=== PATIENT | female | born 1990 | race Caucasian/White ===

== ENCOUNTER 2018-02-13 10:10 | Emergency (ER) | payer OTHER ==
--- NOTE | 2018-02-13 10:43 | EDPHY ---
H & P Time Seen by Provider: 02/13/18 10:28 HPI/ROS: Chief complaint. Hand laceration HPI. Patient is 27-year-old female was shucking oysters last night and stab herself in the left palm with the oyster knife. Injury occurred about 9:00 p.m.. Patient complains of pain. No focal weakness or paresthesias it hurts to move her fingers. No other injuries. She is right handed. ROS 10 systems were reviewed and negative with the exception of the elements mentioned in the history of present illness Past Medical/Surgical History: IUD, fibromyalgia Social History: , nonsmoker, no alcohol Smoking Status: Never smoked Physical Exam: General Appearance: Alert well-developed female mild distress vital signs are stable Eyes: Pupils equal and round no pallor or injection. ENT, Mouth: Mucous membranes are moist. Respiratory: There are no retractions, lungs are clear to auscultation. Cardiovascular: Regular rate and rhythm. Gastrointestinal: Abdomen is soft and nontender, no masses, bowel sounds normal. Neurological: Awake and alert, sensory and motor exams grossly normal. Skin: Stab wound to the mid palm left hand. No obvious swelling or erythema. No evidence for foreign body. Complains of pain with range of motion of fingers. Musculoskeletal: Neck is supple nontender. Extremities symmetrical, full range of motion. Psychiatric: Patient is oriented X 3, there is no agitation. Constitutional: Initial Vital Signs Temperature (C) 37.1 C 02/13/18 10:13 Heart Rate 104 H 02/13/18 10:13 Respiratory Rate 18 02/13/18 10:13 Blood Pressure 122/85 H 02/13/18 10:13 O2 Sat (%) 96 02/13/18 10:13 O2 Delivery Mode Room Air Allergies/Adverse Reactions: NSAIDS (Non-Steroidal Anti-Inflamma Allergy (Verified 02/13/18 10:12) Penicillins Allergy (Verified 02/13/18 10:12) Home Medications: Medication Instructions Recorded LYRICA 12/17/17 Hydrocodone/APAP 5/325 [Morse 1 each PO Q4-6PRN PRN #10 tab 02/13/18 5/325 (*)] levOFLOXACIN [levAQUIN (*)] 750 mg PO DAILY #7 tab 02/13/18 Medical Decision Making - Diagnostics Imaging Results: Imaging Impressions Hand X-Ray 02/13/18 10:48 Impression:. 1. No definite radiopaque foreign bodies. 2. No definite fracture, although suboptimal positioning. X-ray left hand interpreted by me is negative for fracture or foreign body ED Course/Re-evaluation: Re-evaluation 04 16. The patient, her , and I discussed imaging study results, treatment plan including criteria for return and importance of follow- up and further evaluation. They expressed understanding and agreement Differential Diagnosis: Stab wound to left palm while shucking oysters. Likely bacterial etiology would be vibrio species. No evidence for tendon laceration or bone involvement or retained foreign body. Departure - Departure Disposition: Home, Routine, Self-Care Clinical Impression: Laceration Condition: Good Instructions: Laceration Without Closure (ED) Additional Instructions: Ice to hand today to help minimize swelling Hydrocodone as needed for pain or Tylenol 1000 mg every 6 hr Levaquin as antibiotic Return for worsening symptoms. For continued pain, redness, swelling follow up with Hand surgery on Thursday or Thursday Referrals: NONE *PRIMARY CARE P,. [Primary Care Provider] - As per Instructions Lalo Parkre MD [Medical Doctor] - 2-3 days, if not improved Prescriptions: Hydrocodone/APAP 5/325 [Morse 5/325 (*)] 1 each PO Q4-6PRN PRN #10 tab PRN Reason: Pain, Moderate levOFLOXACIN [levAQUIN (*)] 750 mg PO DAILY #7 tab
[2018-02-13 11:49] VITALS: BP 121/71
== END 2018-02-13 11:49 | disposition home or self-care (01) ==
DX: S61.412A Laceration without foreign body of left hand, initial encounter (principal); W26.0XXA Contact with knife, initial encounter; Y93.G1 Activity, food preparation and clean up; Y92.000 Kitchen of unspecified non-institutional (private) residence as the place of occurrence of the external cause

== ENCOUNTER 2018-05-21 17:07 | Emergency (ER) | payer OTHER ==
[2018-05-21 17:15] VITALS: BP 104/86
--- NOTE | 2018-05-21 17:52 | EDPHY ---
General Time Seen by Provider: 05/21/18 17:30 Narrative: CLINICAL IMPRESSION: Closed head injury with mild concussion ASSESSMENT/PLAN: 28-year-old female presents to the emergency department 3 days after a very mild closed head injury without loss of consciousness. Patient is alert, oriented, with a nonfocal neurological exam. No clinical findings to suggest basilar skull fracture or severe closed-head injury, intracranial hemorrhage. No midline neck pain, upper extremity radiculopathy or weakness. Post concussive and 2nd impact syndrome discussed at length. Follow up with PCP. Warning signs return to ED sooner outlined and discharge. DIFFERENTIAL DX: Differential diagnosis for headache includes but not limited to subarachnoid hemorrhage, mild concussion, post concussive syndrome migraine headache, migraine variant headache, tension headache and infectious causes such as meningitis, pharyngitis and sinusitis. ED COURSE: CHIEF COMPLAINT: Closed head injury 3 days ago, headache, fogginess HPI: 28-year-old female with a history fibromyalgia and anxiety, presents to the emergency department by request of her primary care at the [facility] for evaluation of possible concussion. Patient states 3 days ago she was sitting down on a couch, leaned back and hit the left posterior portion of her head on a cabinet. She had no loss of consciousness. She thought she had a black eye the next day but denies hitting her face. She saw her primary care today, spoke to a nurse, who sent her to the ED for evaluation. Patient reports mild intermittent headaches, confusion, "fogginess", and photophobia. She has no history of chronic headaches. She is not anticoagulated. No history of closed head injury. No retrograde or antegrade amnesia. No reports of neck pain, upper extremity numbness or weakness that is new or different from what she already suffers with. PAST MEDICAL HISTORY: Fibromyalgia, anxiety See triage summary and nurse notes for addition applicable history Pertinent Past Surgical History: None reported Family History: Noncontributory Social History: Currently unemployed, [employer] patient REVIEW OF SYSTEMS: A full 10 point review of systems was negative except for those mentioned in HPI. PHYSICAL EXAM: General Appearance: Alert, oriented, appropriate, cooperative, NAD, well hydrated, non-toxic appearing, VSS, no hypoxia. HEENT: TMs are clear bilaterally no perforation or FB, no injection, no evidence of serous or mucopurulent otitis. No hemotympanum or Kauffman sign no palpable scalp depression, contusion, laceration. No raccoon eyes. Oropharynx clear is no erythema or exudates, no tonsillar hypertrophy or asymmetry. Dentition without abnormality. Eyes: PERRLA, no acute vision change, nystagmus, swelling, discharge, pain or photosensitivity. Conjunctiva pink, no pallor or injection Neck: Supple, nontender, no lymphadenopathy, no midline pain, FROM, no meningismus. Respiratory: There are no retractions, lungs are clear to auscultation. No chest wall tenderness or rib pain Cardiac: Regular rate and rhythm, no murmurs or gallops. Neuro: Alert, oriented x3, answering all questions appropriately, no focal neurological deficits on exam. Gait without ataxia Skin: Warm, dry, no rashes, no nodules on palpation. MEDICAL DECISION MAKING: Patient was seen independently. Secondary supervising physician at time of evaluation was: Dr. Jara. Diagnosis: Mild concussion . New, requires workup Summary: See Assessment and Plan for summary of ED visit Patient Progress: Improved. - History Smoking Status: Never smoked - Objective Vital Signs: Initial Vital Signs Temperature (C) 36.9 C 05/21/18 17:12 Heart Rate 74 05/21/18 17:12 Respiratory Rate 18 05/21/18 17:12 Blood Pressure 104/86 H 05/21/18 17:12 O2 Sat (%) 98 05/21/18 17:12 O2 Delivery Mode Room Air Allergies/Adverse Reactions: NSAIDS (Non-Steroidal Anti-Inflamma Allergy (Verified 05/21/18 17:10) Penicillins Allergy (Verified 05/21/18 17:10) Home Medications: Medication Instructions Recorded LYRICA 12/17/17 levOFLOXACIN [levAQUIN (*)] 750 mg PO DAILY #7 tab 02/13/18 DULoxetine 05/21/18 Propranolol HCl 05/21/18 Departure - Departure Disposition: Home, Routine, Self-Care Clinical Impression: Mild concussion Qualifiers: Encounter type: initial encounter Loss of consciousness presence/duration: without LOC Qualified Code(s): S06.0X0A - Concussion without loss of consciousness, initial encounter Condition: Good Instructions: Concussion (ED), Post Concussion Syndrome (ED) Additional Instructions: DISCHARGE INSTRUCTIONS FROM YOUR DOCTOR Thank you for visiting our emergency department today. Please keep in mind that discharge from the emergency department does not mean that there is nothing wrong - it simply means that we have not identified an emergency condition that requires further evaluation or treatment in the hospital. You should always plan to follow up with primary care for re-evaluation of your condition in the next 2-3 days. If you have been referred to a specialist, please call as soon as possible (today or tomorrow) to schedule your follow up appointment at the appropriate time. YOU ARE BEING DIAGNOSED WITH A CONCUSSION. PLEASE FOLLOWUP WITH A PRIMARY CARE DOCTOR IN 24-48 HOURS. IF YOU DO NOT HAVE A PRIMARY CARE, A REFERRAL WAS GIVEN TONIGHT. PLEASE AVOID TV, COMPUTERS, TEXTING, VIDEO GAMES, SCREEN TIME AND CONTACT SPORTS UNTIL YOU ARE CLEARED BY A PRIMARY CARE. WE HAVE ALSO INCLUDED OUR GRADUAL RETURN TO PLAY PROTOCOL A GUIDELINE BUT DEFINITIVE RETURN TO ABOVE MENTIONED ACTIVITIES SHOULD COME FROM YOUR PCP. RETURN TO THE ER SOONER FOR WORSENING OR SEVERE HEADACHES, SEIZURES, ALTERED MENTAL STATUS, VOMITING, SEVERE GRADUAL [id number] PROTOCOL PATIENT MUST BE SYMPTOM FREE FOR 24 HOURS BEFORE PROGRESSING TO THE NEXT STEP. IF PATIENT HAS SYMPTOMS DURING STEP'S 2-6, STOP ACTIVITY AND RETURN PREVIOUS STEP. PATIENT CAN NOT PROGRESS TO NEXT STEP UNLESS CURRENT STEP CAN BE COMPLETED WITH OUT ANY SYMPTOMS (IE HEADACHE, DIZZINESS, CONFUSION...) BRIGHT LIGHTS, TV, COMPUTERS, IPAD'S, MUSIC, READING CAN TRIGGER OR WORSEN CONCUSSION SYMPTOMS THUS SHOULD BE AVOIDED OR USED IN MODERATION. NO CONTACT SPORTS UNTIL YOU ARE CLEARED BY YOUR PRIMARY CARE PHYSICIAN. STEP 1. NO SAME DAY RETURN TO PLAY, REST ONLY , DO NOT PROCEED TO STEP 2 UNTIL ALL SYMPTOMS HAVE RESOLVED STEP 2. LIGHT AEROBIC EXERCISE (IE WALKING, SWIMMING OR STATIONARY CYCLING), WHILE KEEPING INTENSITY < 70% MAX HEART RATE STEP 3. SPORT-SPECIFIC EXERCISE (IE SKATING DRILLS IN ICE HOCKEY-NO PASSING, RUNNING DRILLS IN SOCCER-NO PASSING), NO HEAD IMPACT ACTIVITIES STEP 4. NON-CONTACT TRAINING, WITH PROGRESSION TO MORE COMPLEX DRILLS (IE PASSING DRILLS) NO HEAD IMPACT ACTIVITIES STEP 5. FULL-CONTACT PRACTICE AFTER GETTING MEDICAL CLEARANCE STEP 6. RETURN TO GAME PLAY THIS WAS BASED FROM: CONSENSUS STATEMENT ON CONCUSSION IN SPORT: THE 4TH INTERNATIONAL CONFERENCE ON CONCUSSION IN SPORT HELD [facility]. BR J SPORTS MED. 2013;47(5):250- 258 People present with illnesses and injuries in different ways, and it is always possible that we have missed something. You may always return for re-evaluation if symptoms worsen or if they are not improving or if you develop new/different symptoms. Again, thank you for choosing our emergency department. We hope that you feel better. Referrals: MIMI KELLY [Other] - 2-3 days without fail
== END 2018-05-21 17:58 | disposition home or self-care (01) ==
DX: S06.0X0A Concussion without loss of consciousness, initial encounter (principal); M79.7 Fibromyalgia; F41.9 Anxiety disorder, unspecified; W22.09XA Striking against other stationary object, initial encounter; Y92.9 Unspecified place or not applicable; Y93.9 Activity, unspecified; Y99.9 Unspecified external cause status; Z88.0 Allergy status to penicillin

== ENCOUNTER 2018-06-12 14:57 | Emergency (ER) | payer OTHER ==
[2018-06-12 15:05] VITALS: BP 121/75
--- NOTE | 2018-06-12 15:37 | EDPHY ---
H & P Stated Complaint: R wrist injury 3 days ago, swollen, buised. Time Seen by Provider: 06/12/18 15:32 HPI/ROS: HPI: This is a 28-year-old female who presents with Chief Complaint: R wrist injury 3 days ago, swollen, bruised. Location: Right wrist Quality: Injury Duration: 2 days ago Signs and Symptoms: No bleeding, no radiation, no numbness, no weakness, no tingling, no incontinence, no decreased range of motion, + swelling, + pain, no fever, + bruising Timing: Acute, constant Severity: Moderate Context: Patient has a history of fibromyalgia, right-hand dominant, presents with complaints of her pulling on her right hand and wrist while they were hiking in order to prevent her from falling when she slipped and lost her footing. Denies LOC/head injury/neck pain/dizziness/nausea/vomiting/amnesia. She reports that she felt immediate, constant, moderate pain at the time and then later developed bruising and swelling on the volar aspect of her wrist. Patient took Tylenol approximately 1 hr prior to arrival with no relief of pain. Modifying Factors: Tylenol Comment: ROS: A comprehensive 10 system review of systems is otherwise negative aside from elements mentioned in the history of present illness. MEDICAL/SURGICAL/SOCIAL HISTORY: Medical history: fibromyalgia, anxiety. IUD in place. Surgical history: Denies Social history: . Nonsmoker CONSTITUTIONAL: Well-developed, well-nourished, young adult white female, awake and alert, no obvious distress HEENT: Atraumatic and normocephalic. NECK: supple, no midline tenderness Cardiovascular: Normal S1/S2, regular rate, regular rhythm, without murmur rub or gallop. PULMONARY/CHEST: Symmetrical and nontender. Clear to auscultation bilaterally. Good air movement. No accessory muscle usage. ABDOMEN: Soft, nondistended, nontender. BACK: No midline tenderness EXTREMITIES: 2/2 pulses, strength 5/5, right WRIST: Bruising noted to the volar aspect with tenderness to palpation over the wrist crease. Extension to 70, flexion to 80, radial deviation to 20 degree, ulnar deviation to 30, no scaphoid tenderness, no tenderness over ulnar styloid, no tenderness over radial styloid, no pain with Asael test, no pain with Phalen test, no pain with Tinel test. DIP/PIP/MCP flexion/extension intact with good light touch sensation. no deformities, no clubbing, no cyanosis or edema. NEUROLOGICAL: no focal neuro deficits. GCS 15. Light touch sensation intact. SKIN: Warm and dry, no erythema. no rash. Good capillary refill. Source: Patient Exam Limitations: No limitations - Personal History LMP (Females 10-55): IUD In Place Current Tetanus/Diphtheria Vaccine: Unsure Current Tetanus Diphtheria and Acellular Pertussis (TDAP): Unsure - Medical/Surgical History Hx Asthma: No Hx Chronic Respiratory Disease: No Hx Diabetes: No Hx Cardiac Disease: No Hx Renal Disease: No Hx Cirrhosis: No Hx Alcoholism: No Hx HIV/AIDS: No Hx Splenectomy or Spleen Trauma: No Other PMH: fibromyalgia, anxiety. - Social History Smoking Status: Never smoked Constitutional: Initial Vital Signs Temperature (C) 37.0 C 06/12/18 15:01 Heart Rate 70 06/12/18 15:01 Respiratory Rate 16 06/12/18 15:01 Blood Pressure 121/75 H 06/12/18 15:01 O2 Sat (%) 97 06/12/18 15:01 O2 Delivery Mode Room Air Allergies/Adverse Reactions: NSAIDS (Non-Steroidal Anti-Inflamma Allergy (Intermediate, Verified 06/12/18 15: 06) Abdominal Cramping Penicillins Allergy (Intermediate, Verified 06/12/18 15:06) Rash Home Medications: Medication Instructions Recorded LYRICA 12/17/17 DULoxetine 05/21/18 Propranolol HCl 05/21/18 Medical Decision Making Procedures: Procedure: Splint placement. A right Velcro thumb spica splint was applied by the Emergency Room sound recording technician. After application of the splint I returned and re-examined the patient. The splint was adequately immobilizing the joint and distal to the splint the patient's circulation and sensation was intact. ED Course/Re-evaluation: Vital signs reviewed and stable. Reviewed right wrist x-ray and shows no fracture, dislocation. Appears to be a sprain and soft tissue injury. Placed in Velcro thumb spica splint with orthopedic follow-up as needed Patient asking for pain medication as NSAIDs upset her stomach. Patient given Percocet x1 in the emergency room. No signs of neurovascular compromise/tenting of skin/compartment syndrome/ extremities and joints examined above and below area of concern and are neurovascularly intact. This patient was seen under the supervision of my secondary supervising physician. I evaluated care for this patient independently. Discussed this patient with Dr. Vanegas who did not see the patient. Differential Diagnosis: Differential diagnosis includes but is not limited to radial fracture, ulnar fracture, scaphoid fracture, wrist sprain. - Data Points Medications Given: Discontinued Medications Oxycodone/Acetaminophen (Percocet 5/325) 1 tab PO EDNOW ONE Stop: 06/12/18 15:40 Last Admin: 06/12/18 15:44 Dose: 1 tab Departure - Departure Disposition: Home, Routine, Self-Care Clinical Impression: Sprain of right wrist Qualifiers: Encounter type: initial encounter Qualified Code(s): S63.501A - Unspecified sprain of right wrist, initial encounter Contusion of wrist, right Qualifiers: Encounter type: initial encounter Qualified Code(s): S60.211A - Contusion of right wrist, initial encounter Condition: Good Instructions: Contusion in Adults (ED), Wrist Sprain (ED) Additional Instructions: Wear the splint while out of bed until pain free or seen by Orthopedics. Take Tylenol 650 mg every 4 hours and/or Ibuprofen 600 mg every 8 hours with food as needed for pain. Apply ice for 30 minutes at a time; 2-3 times per day for the next 1-2 days. Follow up with Orthopedics in 7-10 days if symptoms persist at which time they will evaluate and recommend with you if conservative management versus further imaging is indicated. The x-rays obtained in the emergency department today demonstrate no evidence of an obvious fracture. Sometimes fractures are not obvious on the initial set of x-rays performed in the ED. For this reason, you should have repeat x-rays performed in 7-10 days if you are having any pain exclude the possibility of an occult fracture. Referrals: Evan Becerra MD [Medical Doctor] - As per Instructions
[2018-06-12] MEDS ORDERED: OXYCODONE/APAP 5/325 TAB PO ONE (15:39)
== END 2018-06-12 15:46 | disposition home or self-care (01) ==
DX: S63.501A Unspecified sprain of right wrist, initial encounter (principal); S60.211A Contusion of right wrist, initial encounter; W50.2XXA Accidental twist by another person, initial encounter; Y93.01 Activity, walking, marching and hiking; Y92.828 Other wilderness area as the place of occurrence of the external cause
CPT/HCPCS: L3807

== ENCOUNTER 2018-07-22 17:15 | Emergency (ER) | payer OTHER ==
[2018-07-22] MEDS ORDERED: NS 1,000 ML IV ONE (18:05)
[2018-07-22] MEDS ORDERED: fentaNYL 100 MCG/2 ML INJ IVP ONE (18:05)
[2018-07-22 18:45] LABS: PLATELET COUNT 331 10^3/uL (150-400)
[2018-07-22] MEDS ORDERED: HYOSCYAMINE SULFATE 0.125 MG TAB PO ONE (19:53)
[2018-07-22] MEDS ORDERED: MAG HYDROX/AL HYDROX/SIMETH 30 ML UDCUP PO ONE (19:53)
[2018-07-22] MEDS ORDERED: LIDOCAINE 2% VISCOUS 15 ML UDCUP PO ONE (19:53)
--- NOTE | 2018-07-22 19:58 | EDPHY ---
H & P Stated Complaint: RUQ abd pain Time Seen by Provider: 07/22/18 17:53 HPI/ROS: Chief complaint: Right upper quadrant abdominal pain History of present illness: This is a 28-year-old female who presents to the emergency department for right upper quadrant abdominal pain. She reports the onset of symptoms over the last 2-3 days. She describes a squeezing pain that has been intermittent nature but becoming more persistent over the last day. She has had associated nausea but no vomiting. She denies precipitating factors. She denies any alleviating or aggravating factors. She denies other associated signs or symptoms including no fevers, no diarrhea or constipation, no blood in the stools, no urinary symptoms, no chest pain, trouble breathing or cough. Review of systems: A 10 point review of systems was obtained and other than described above was negative - Personal History LMP (Females 10-55): IUD In Place Current Tetanus/Diphtheria Vaccine: Yes Current Tetanus Diphtheria and Acellular Pertussis (TDAP): Yes - Medical/Surgical History Hx Asthma: No Hx Chronic Respiratory Disease: No Hx Diabetes: No Hx Cardiac Disease: No Hx Renal Disease: No Hx Cirrhosis: No Hx Alcoholism: No Hx HIV/AIDS: No Hx Splenectomy or Spleen Trauma: No Other PMH: fibromyalgia, anxiety. - Social History Smoking Status: Never smoked - Physical Exam Exam: General Appearance: Alert, nontoxic. Eyes: Pupils equal and round no pallor or injection. ENT, Mouth: Mucous membranes moist. Respiratory: There are no retractions, lungs are clear to auscultation. Cardiovascular: Regular rate and rhythm. Gastrointestinal: Bowel sounds are normal. Abdomen is soft and nondistended. There is mild tenderness in the right upper quadrant but no Payne sign. No peritoneal signs. Neurological: Alert and oriented x4. Strength and sensation intact and symmetrical. Skin: Warm and dry, no rashes. Musculoskeletal: Neck is supple non tender. Extremities are symmetrical, full range of motion. Psychiatric: Patient is oriented X 3, there is no agitation. Constitutional: Initial Vital Signs Temperature (C) 37.3 C 07/22/18 17:24 Heart Rate 89 07/22/18 17:24 Respiratory Rate 16 07/22/18 17:24 Blood Pressure 128/71 H 07/22/18 17:24 O2 Sat (%) 96 07/22/18 17:24 O2 Delivery Mode Room Air Allergies/Adverse Reactions: NSAIDS (Non-Steroidal Anti-Inflamma Allergy (Intermediate, Verified 06/12/18 15: 06) Abdominal Cramping Penicillins Allergy (Intermediate, Verified 06/12/18 15:06) Rash Home Medications: Medication Instructions Recorded LYRICA 12/17/17 DULoxetine 05/21/18 Propranolol HCl 05/21/18 Medical Decision Making - Diagnostics Imaging Results: Imaging Impressions Abdomen Ultrasound 07/22/18 18:05 Impression: 1. Negative right upper quadrant sonogram. Results called to Huang Syed PA-C, at 6:45 PM. Imaging: Discussed imaging studies w/ stave block roller Radiologist ED Course/Re-evaluation: Patient is discussed with my secondary supervising physician Dr. Herb Coker. Patient presents to the emergency department with right upper quadrant abdominal pain. She is nontoxic. Vital signs are stable. Mild discomfort on palpation of the right upper quadrant without peritoneal signs. Blood studies, urinalysis and ultrasound unremarkable. Symptomatically treated with some improvement in symptoms. She is discharged home to follow up with her primary care doctor for further evaluation and care. Home care is discussed. Return precautions are given. The patient voiced understanding and agreement with plan. Differential Diagnosis: Included but not limited to gastritis, peptic ulcer disease, duodenitis, biliary tract disease, hepatitis, colitis, doubt full cardiopulmonary in nature - Data Points Laboratory Results: Laboratory Results 07/22/18 18:30 07/22/18 18:30 07/22/18 07/22/18 07/22/18 19:30 18:30 18:30 WBC RBC Hgb Hct MCV MCH MCHC RDW Plt Count MPV Neut % (Auto) Lymph % (Auto) [place] % (Auto) Eos % (Auto) Baso % (Auto) Nucleat RBC Rel Count Absolute Neuts (auto) Absolute Lymphs (auto) Absolute Monos (auto) Absolute Eos (auto) Absolute Basos (auto) Absolute Nucleated RBC Immature Gran % Immature Gran # Sodium 134 mEq/L L mEq/L (135-145) Potassium 4.4 mEq/L mEq/L (3.5-5.2) Chloride 100 mEq/L mEq/L (97-110) Carbon Dioxide 27 mEq/l mEq/l (22-31) Anion Gap 7 mEq/L mEq/L (6-14) BUN 9 mg/dL mg/dL (7-23) Creatinine 0.8 mg/dL mg/dL (0.6-1.0) Estimated GFR > 60 Glucose 89 mg/dL mg/dL (70-100) Calcium 9.7 mg/dL mg/dL (8.5-10.4) Total Bilirubin 0.5 mg/dL mg/dL (0.1-1.4) Conjugated Bilirubin 0.4 mg/dL mg/dL (0.0-0.5) Unconjugated Bilirubin 0.1 mg/dL mg/dL (0.0-1.1) AST 31 IU/L IU/L (14-46) ALT 29 IU/L IU/L (9-52) Alkaline Phosphatase 69 IU/L IU/L (38-126) Total Protein 7.0 g/dL g/dL (6.3-8.2) Albumin 4.3 g/dL g/dL (3.5-5.0) Lipase 69 IU/L IU/L (23-300) Beta HCG, Qual NEGATIVE Urine Color YELLOW Urine Appearance CLEAR Urine pH 6.0 (5.0-7.5) Ur Specific [place] 1.010 (1.002-1.030) Urine Protein NEGATIVE (NEGATIVE) Urine Ketones NEGATIVE (NEGATIVE) Urine Blood NEGATIVE (NEGATIVE) Urine Nitrate NEGATIVE (NEGATIVE) Urine Bilirubin NEGATIVE (NEGATIVE) Urine Urobilinogen NEGATIVE EU EU (0.2-1.0) Ur Leukocyte Esterase NEGATIVE (NEGATIVE) Urine RBC 1-3 /hpf /hpf (0-3) Urine WBC 0-1 /hpf /hpf (0-3) Ur Epithelial Cells TRACE /lpf /lpf (NONE-1+) Urine Mucus TRACE /lpf /lpf (NONE-1+) Urine Glucose NEGATIVE (NEGATIVE) 07/22/18 18:30 WBC 9.33 10^3/uL 10^3/uL (3.80-9.50) RBC 5.24 10^6/uL 10^6/uL (4.18-5.33) Hgb 15.7 g/dL g/dL (12.6-16.3) Hct 47.6 % H % (38.0-47.0) MCV 90.8 fL fL (81.5-99.8) MCH 30.0 pg pg (27.9-34.1) MCHC 33.0 g/dL g/dL (32.4-36.7) RDW 12.8 % % (11.5-15.2) Plt Count 331 10^3/uL 10^3/uL (150-400) MPV 9.5 fL fL (8.7-11.7) Neut % (Auto) 61.9 % % (39.3-74.2) Lymph % (Auto) 27.4 % % (15.0-45.0) [place] % (Auto) 8.0 % % (4.5-13.0) Eos % (Auto) 1.4 % % (0.6-7.6) Baso % (Auto) 0.5 % % (0.3-1.7) Nucleat RBC Rel Count 0.0 % % (0.0-0.2) Absolute Neuts (auto) 5.77 10^3/uL 10^3/uL (1.70-6.50) Absolute Lymphs (auto) 2.56 10^3/uL 10^3/uL (1.00-3.00) Absolute Monos (auto) 0.75 10^3/uL 10^3/uL (0.30-0.80) Absolute Eos (auto) 0.13 10^3/uL 10^3/uL (0.03-0.40) Absolute Basos (auto) 0.05 10^3/uL 10^3/uL (0.02-0.10) Absolute Nucleated RBC 0.00 10^3/uL 10^3/uL (0-0.01) Immature Gran % 0.8 % % (0.0-1.1) Immature Gran # 0.07 10^3/uL 10^3/uL (0.00-0.10) Sodium Potassium Chloride Carbon Dioxide Anion Gap BUN Creatinine Estimated GFR Glucose Calcium Total Bilirubin Conjugated Bilirubin Unconjugated Bilirubin AST ALT Alkaline Phosphatase Total Protein Albumin Lipase Beta HCG, Qual Urine Color Urine Appearance Urine pH Ur Specific [place] Urine Protein Urine Ketones Urine Blood Urine Nitrate Urine Bilirubin Urine Urobilinogen Ur Leukocyte Esterase Urine RBC Urine WBC Ur Epithelial Cells Urine Mucus Urine Glucose Medications Given: Discontinued Medications Al Hydroxide/Mg Hydroxide (Maalox Susp) 30 ml PO ONCE ONE Stop: 07/22/18 19:54 Last Admin: 07/22/18 20:00 Dose: 30 ml Fentanyl (Sublimaze) 100 mcg IVP EDNOW ONE Stop: 07/22/18 18:06 Last Admin: 07/22/18 18:38 Dose: 100 mcg Hyoscyamine Sulfate (Levsin, Hyomax-Sl) 0.25 mg PO ONCE ONE Stop: 07/22/18 19:54 Last Admin: 07/22/18 19:59 Dose: 0.25 mg Sodium Chloride (Ns) 1,000 mls @ 0 mls/hr IV EDNOW ONE; Wide Open PRN Reason: Protocol Stop: 07/22/18 18:06 Last Admin: 07/22/18 18:38 Dose: 1,000 mls Lidocaine (Lidocaine 2% Viscous) 15 ml PO ONCE ONE Stop: 07/22/18 19:54 Last Admin: 07/22/18 20:01 Dose: 15 ml Departure - Departure Disposition: Home, Routine, Self-Care Clinical Impression: Abdominal pain Qualifiers: Abdominal location: right upper quadrant Qualified Code(s): R10.11 - Right upper quadrant pain Condition: Good Instructions: Abdominal Pain (ED) Additional Instructions: Follow-up with your primary care doctor for continued evaluation and care If symptoms worsen or new symptoms develop return to the emergency room for recheck Referrals: MD LETICIA [Other] - As per Instructions
[2018-07-22 20:04] VITALS: BP 125/75
== END 2018-07-22 20:20 | disposition home or self-care (01) ==
DX: R10.11 Right upper quadrant pain (principal); M79.7 Fibromyalgia; F41.9 Anxiety disorder, unspecified; E86.9 Volume depletion, unspecified
CPT/HCPCS: 96374; J3010

== ENCOUNTER 2018-10-13 16:29 | Emergency (ER) | payer OTHER | END 2018-10-13 17:26 | disposition home or self-care (01) ==

== ENCOUNTER 2018-10-28 14:48 | Emergency (ER) | payer OTHER | END 2018-10-28 18:10 | disposition home or self-care (01) ==